=== PATIENT | male | born 1940 | race African-American/Black ===

== ENCOUNTER 2020-12-11 20:15 | Inpatient (IN) | payer OTHER ==
[2020-12-11 23:15] LABS: INR 1.06 (0.83-1.09); PROTHROMBIN TIME (PATIENT) 12.8 SEC (9.7-13.0)
[2020-12-11 23:18] LABS: ACTIVATED PTT 26.1 SECONDS (25.2-36.5)
[2020-12-11 23:28] LABS: CALCIUM 9.8 mg/dL (8.5-10.1)
[2020-12-11 23:29] LABS: ALBUMIN 3.7 g/dl (3.4-5.0); BLOOD UREA NITROGEN 14.8 mg/dL (7-18)
[2020-12-11 23:30] LABS: EOS % 4.9 % (0-4.5); HEMATOCRIT 30.5 % (35.4-49); HEMOGLOBIN 9.4 GM/dL (11.7-16.9); LYMPH % 21.1 % (8-40); MCH 24.7 pg (25.7-33.7); MEAN CELL VOLUME 79.6 fl (80-96); MEAN PLT VOLUME 9.2 fl (7.5-11.1); MONO % 7.9 % (3.8-10.2); NEUT % 65.1 % (42.8-82.8); PLATELET COUNT 354 K/MM3 (134-434); RBC 3.82 M/mm3 (4.00-5.60); RDW 16.5 % (11.9-15.9); WHITE BLOOD COUNT 11.8 K/mm3 (4.0-10.0)
[2020-12-11 23:32] LABS: CREATININE 1.4 mg/dL (0.55-1.3)
[2020-12-11 23:33] LABS: BILIRUBIN,TOTAL 0.2 mg/dL (0.2-1)
[2020-12-11 23:37] LABS: N-TERMINAL BNP 174.1 pg/ml (5-450)
[2020-12-11] MEDS ORDERED: SODIUM CHLORIDE 0.9% 500 ML INFUS.BAG IV ONE (23:43)
[2020-12-12 02:53] LABS: PH,URINE 7.5 (5.0-8.0); URINE APPEARANCE CLEAR; URINE BILIRUBIN NEGATIVE (NEGATIVE); URINE COLOR YELLOW; URINE GLUCOSE (UA) NEGATIVE (NEGATIVE); URINE KETONE NEGATIVE (NEGATIVE); URINE LEUK ESTERASE NEGATIVE (NEGATIVE); URINE NITRITE NEGATIVE (NEGATIVE); URINE PROTEIN NEGATIVE (NEGATIVE); URINE UROBILINOGEN 0.2 mg/dL (0.2-1.0)
[2020-12-12] MEDS ORDERED: ENOXAPARIN NA (PORCINE) 40 MG/0.4 ML DISP.SYRIN SQ ONE (07:51)
[2020-12-12] MEDS ORDERED: amLODIPine BESYLATE 5 MG TABLET (FP) ONE (07:51)
[2020-12-12 07:53] LABS: HEMATOCRIT 27.4 % (35.4-49); HEMOGLOBIN 8.8 GM/dL (11.7-16.9); MCH 25.4 pg (25.7-33.7); MCHC 32.1 g/dl (32.0-35.9); MEAN CELL VOLUME 79.1 fl (80-96); MEAN PLT VOLUME 9.1 fl (7.5-11.1); PLATELET COUNT 304 K/MM3 (134-434); RBC 3.47 M/mm3 (4.00-5.60); RDW 16.1 % (11.9-15.9); WHITE BLOOD COUNT 10.7 K/mm3 (4.0-10.0)
[2020-12-12 08:06] LABS: BLOOD UREA NITROGEN 11.1 mg/dL (7-18); CALCIUM 8.8 mg/dL (8.5-10.1)
[2020-12-12 08:09] LABS: CREATININE 1.1 mg/dL (0.55-1.3); PHOSPHOROUS 3.1 mg/dL (2.5-4.9)
[2020-12-12 08:11] LABS: BILIRUBIN,TOTAL 0.5 mg/dL (0.2-1); TOT PROT 6.7 g/dl (6.4-8.2)
[2020-12-12 08:18] LABS: IRON SERUM 21 ug/dL (50-175); TOTAL IRON BINDING CAPACITY 322 ug/dL (250-450)
[2020-12-12] MEDS: amLODIPine BESYLATE 5 MG TABLET (FP) PO SCH (11:19)
[2020-12-12] MEDS: ENOXAPARIN NA (PORCINE) 40 MG/0.4 ML DISP.SYRIN SQ SCH (11:19)
[2020-12-12 23:54] VITALS: BMI 23.7
[2020-12-13] MEDS: ENOXAPARIN NA (PORCINE) 40 MG/0.4 ML DISP.SYRIN SQ SCH (09:47)
[2020-12-13] MEDS: amLODIPine BESYLATE 5 MG TABLET (FP) PO SCH (09:48)
[2020-12-13] MEDS ORDERED: ZINC OXIDE/PANTHENOL/VITAMIN E 56 GM TUBE TP PRN (18:54)
[2020-12-13] MEDS ORDERED: PT OWN MED DRAWER 7, Y5N ONE ×2 (21:06→21:55)
[2020-12-13] MEDS: FAMOTIDINE 20 MG TABLET PO SCH (21:09)
[2020-12-13] MEDS: FOLIC ACID 1 MG TABLET (FP) PO SCH (21:09)
[2020-12-13] MEDS: GLYCOPYRROLATE 1 MG TABLET PO SCH (21:52)
[2020-12-14 08:03] LABS: BASO % 0.6 % (0-2.0); EOS % 2.8 % (0-4.5); HEMATOCRIT 27.4 % (35.4-49); HEMOGLOBIN 8.6 GM/dL (11.7-16.9); LYMPH % 10.3 % (8-40); MCH 24.9 pg (25.7-33.7); MCHC 31.2 g/dl (32.0-35.9); MEAN CELL VOLUME 79.8 fl (80-96); MEAN PLT VOLUME 9.6 fl (7.5-11.1); MONO % 5.9 % (3.8-10.2); NEUT % 80.4 % (42.8-82.8); PLATELET COUNT 311 K/MM3 (134-434); RBC 3.44 M/mm3 (4.00-5.60); RDW 16.4 % (11.9-15.9); WHITE BLOOD COUNT 17.1 K/mm3 (4.0-10.0)
[2020-12-14 08:22] LABS: BLOOD UREA NITROGEN 21.7 mg/dL (7-18)
[2020-12-14 08:26] LABS: CREATININE 1.1 mg/dL (0.55-1.3)
[2020-12-14 08:30] LABS: CALCIUM 10.3 mg/dL (8.5-10.1)
[2020-12-14] MEDS ORDERED: PT OWN MED DRAWER 7, Y5N ONE ×2 (09:06→21:53)
[2020-12-14] MEDS: FAMOTIDINE 20 MG TABLET PO SCH (09:44)
[2020-12-14] MEDS: amLODIPine BESYLATE 5 MG TABLET (FP) PO SCH (09:44)
[2020-12-14] MEDS: GLYCOPYRROLATE 1 MG TABLET PO SCH ×2 (09:44→23:00)
[2020-12-14] MEDS: ENOXAPARIN NA (PORCINE) 40 MG/0.4 ML DISP.SYRIN SQ SCH (09:45)
[2020-12-14] MEDS: FOLIC ACID 1 MG TABLET (FP) PO SCH (09:45)
[2020-12-14] MEDS ORDERED: dilTIAZem HCL 60 MG TABLET PO ONE (11:09)
[2020-12-14] MEDS ORDERED: ACETAMINOPHEN 500 MG TABLET (FP) PO PRN (22:21)
[2020-12-14] MEDS: DOCUSATE SODIUM 100 MG CAPSULE (FP) PO SCH (23:00)
[2020-12-15 07:23] LABS: HEMATOCRIT 27.2 % (35.4-49); HEMOGLOBIN 8.8 GM/dL (11.7-16.9); LYMPH % 24.1 % (8-40); MCH 25.5 pg (25.7-33.7); MCHC 32.3 g/dl (32.0-35.9); MEAN PLT VOLUME 9.1 fl (7.5-11.1); MONO % 8.7 % (3.8-10.2); NEUT % 61.2 % (42.8-82.8); PLATELET COUNT 311 K/MM3 (134-434); RBC 3.44 M/mm3 (4.00-5.60); RDW 16.3 % (11.9-15.9)
[2020-12-15 07:33] LABS: BLOOD UREA NITROGEN 16.7 mg/dL (7-18); CALCIUM 9.9 mg/dL (8.5-10.1)
[2020-12-15 07:36] LABS: CREATININE 1.2 mg/dL (0.55-1.3)
[2020-12-15] MEDS ORDERED: PT OWN MED DRAWER 7, Y5N ONE ×2 (09:33→21:11)
[2020-12-15] MEDS: FAMOTIDINE 20 MG TABLET PO SCH (10:10)
[2020-12-15] MEDS: GLYCOPYRROLATE 1 MG TABLET PO SCH ×2 (10:10→21:28)
[2020-12-15] MEDS: FOLIC ACID 1 MG TABLET (FP) PO SCH (10:10)
[2020-12-15] MEDS: DOCUSATE SODIUM 100 MG CAPSULE (FP) PO SCH (21:28)
[2020-12-16] MEDS ORDERED: PT OWN MED DRAWER 7, Y5N ONE ×2 (09:03→21:10)
[2020-12-16] MEDS: FAMOTIDINE 20 MG TABLET PO SCH (09:37)
[2020-12-16] MEDS: GLYCOPYRROLATE 1 MG TABLET PO SCH ×2 (09:39→21:12)
[2020-12-16] MEDS: FOLIC ACID 1 MG TABLET (FP) PO SCH (09:39)
[2020-12-16] MEDS ORDERED: AMIODARONE HCL 200 MG TABLET PO ONE (11:45)
[2020-12-16 13:23] LABS: BASO % 0.8 % (0-2.0); EOS % 3.6 % (0-4.5); HEMATOCRIT 28.6 % (35.4-49); LYMPH % 15.7 % (8-40); MCH 24.9 pg (25.7-33.7); MCHC 31.6 g/dl (32.0-35.9); MEAN CELL VOLUME 78.7 fl (80-96); MEAN PLT VOLUME 8.8 fl (7.5-11.1); MONO % 7.9 % (3.8-10.2); PLATELET COUNT 335 K/MM3 (134-434); RBC 3.63 M/mm3 (4.00-5.60); RDW 16.4 % (11.9-15.9); WHITE BLOOD COUNT 12.2 K/mm3 (4.0-10.0)
[2020-12-16 13:45] LABS: BLOOD UREA NITROGEN 20.1 mg/dL (7-18); CALCIUM 10.2 mg/dL (8.5-10.1)
[2020-12-16 13:50] LABS: CREATININE 1.3 mg/dL (0.55-1.3)
[2020-12-16] MEDS: AMIODARONE HCL 200 MG TABLET PO SCH ×2 (21:12→22:36)
[2020-12-16] MEDS: DOCUSATE SODIUM 100 MG CAPSULE (FP) PO SCH (21:12)
[2020-12-17] MEDS: AMIODARONE HCL 200 MG TABLET PO SCH ×3 (06:09→22:59)
[2020-12-17 08:24] LABS: EOS % 4.7 % (0-4.5); HEMATOCRIT 26.6 % (35.4-49); HEMOGLOBIN 8.5 GM/dL (11.7-16.9); LYMPH % 22.8 % (8-40); MCHC 31.9 g/dl (32.0-35.9); MEAN CELL VOLUME 78.5 fl (80-96); MEAN PLT VOLUME 9.2 fl (7.5-11.1); MONO % 7.2 % (3.8-10.2); NEUT % 64.3 % (42.8-82.8); PLATELET COUNT 328 K/MM3 (134-434); RBC 3.39 M/mm3 (4.00-5.60); RDW 16.2 % (11.9-15.9); WHITE BLOOD COUNT 11.3 K/mm3 (4.0-10.0)
[2020-12-17 08:38] LABS: CALCIUM 9.6 mg/dL (8.5-10.1)
[2020-12-17 08:40] LABS: BLOOD UREA NITROGEN 18.6 mg/dL (7-18)
[2020-12-17 08:42] LABS: CREATININE 1.4 mg/dL (0.55-1.3)
[2020-12-17] MEDS ORDERED: AMIODARONE HCL 200 MG TABLET PO SCH (10:00)
[2020-12-17] MEDS: GLYCOPYRROLATE 1 MG TABLET PO SCH ×2 (10:48→23:04)
[2020-12-17] MEDS: POLYETHYLENE GLYCOL 3350 119 GM BTL PO SCH (10:48)
[2020-12-17] MEDS: FAMOTIDINE 20 MG TABLET PO SCH (10:48)
[2020-12-17] MEDS: FOLIC ACID 1 MG TABLET (FP) PO SCH (10:48)
[2020-12-17] MEDS: PANTOPRAZOLE 40 MG TABLET PO SCH ×2 (16:39→22:58)
[2020-12-17] MEDS: MAG HYDROX/AL HYDROX/SIMETH 30 ML UNIT-DOSE CUP PO SCH ×2 (16:39→22:58)
[2020-12-17] MEDS: DOCUSATE SODIUM 100 MG CAPSULE (FP) PO SCH (22:58)
[2020-12-17] MEDS ORDERED: PT OWN MED DRAWER 7, Y5N ONE (23:01)
[2020-12-18] MEDS: AMIODARONE HCL 200 MG TABLET PO SCH ×3 (06:28→22:26)
[2020-12-18] MEDS: MAG HYDROX/AL HYDROX/SIMETH 30 ML UNIT-DOSE CUP PO SCH ×3 (06:28→22:27)
[2020-12-18] MEDS ORDERED: PT OWN MED DRAWER 7, Y5N ONE ×3 (08:51→22:23)
[2020-12-18] MEDS: ASCORBIC ACID 500 MG TABLET (FP) PO SCH (09:03)
[2020-12-18] MEDS: GLYCOPYRROLATE 1 MG TABLET PO SCH ×2 (09:03→22:27)
[2020-12-18] MEDS: FERROUS GLUCONATE 324 MG TAB (FP) PO SCH (09:03)
[2020-12-18] MEDS: FOLIC ACID 1 MG TABLET (FP) PO SCH (09:03)
[2020-12-18] MEDS: PANTOPRAZOLE 40 MG TABLET PO SCH ×2 (09:04→22:27)
[2020-12-18] MEDS: POLYETHYLENE GLYCOL 3350 119 GM BTL PO SCH (10:49)
[2020-12-18] MEDS: DOCUSATE SODIUM 100 MG CAPSULE (FP) PO SCH (22:26)
[2020-12-19] MEDS: MAG HYDROX/AL HYDROX/SIMETH 30 ML UNIT-DOSE CUP PO SCH (05:37)
[2020-12-19] MEDS ORDERED: PT OWN MED DRAWER 7, Y5N ONE (08:47)
[2020-12-19 08:53] VITALS: BP 126/63; PULSE 60; TEMP 97.8
[2020-12-19] MEDS: AMIODARONE HCL 200 MG TABLET PO SCH (09:09)
[2020-12-19] MEDS: FERROUS GLUCONATE 324 MG TAB (FP) PO SCH (09:09)
[2020-12-19] MEDS: GLYCOPYRROLATE 1 MG TABLET PO SCH (09:09)
[2020-12-19] MEDS: FOLIC ACID 1 MG TABLET (FP) PO SCH (09:10)
[2020-12-19] MEDS: PANTOPRAZOLE 40 MG TABLET PO SCH (09:10)
[2020-12-19] MEDS: POLYETHYLENE GLYCOL 3350 119 GM BTL PO SCH (09:10)
[2020-12-19] MEDS: ASCORBIC ACID 500 MG TABLET (FP) PO SCH (09:10)
== END 2020-12-19 11:00 | disposition home or self-care (01) | DRG 309 ==
LOC: JER 20:15 → JERBED 12-12 01:34 → J4S 12-12 20:40
PROVIDERS: ADMIT Hospitalist; ATTEND Internal Medicine
DX: I48.0 Paroxysmal atrial fibrillation (principal); G11.4 Hereditary spastic paraplegia; I24.8 Other forms of acute ischemic heart disease; N17.9 Acute kidney failure, unspecified; R42 Dizziness and giddiness; I47.2 Ventricular tachycardia; I47.1 Supraventricular tachycardia; I10 Essential (primary) hypertension; E78.5 Hyperlipidemia, unspecified; R73.9 Hyperglycemia, unspecified; D64.9 Anemia, unspecified; D72.829 Elevated white blood cell count, unspecified; R47.1 Dysarthria and anarthria
CPT/HCPCS: 36415; 70450-TC; 71045-TC-FY; 80048; 80053; 81003; 82272; 82550; 82553; 82570; 83036; 83540; 83550; 83735; 83880; 84100; 84300; 84443; 84484; 85025; 85027; 85610; 85651; 85730; 87040; 93005; 93010; 93225; 93226; 93306-TC; 93880-TC; 97161-GP; 99285-25; C9803; U0003; U0005

== ENCOUNTER 2023-06-11 10:26 | Inpatient (IN) | payer OTHER ==
[2023-06-11] MEDS ORDERED: SODIUM CHLORIDE 1,000 ML IV SCH (10:45)
[2023-06-11 11:24] LABS: INR 1.15 (0.83-1.09); PROTHROMBIN TIME (PATIENT) 13.3 SEC (9.7-13.0)
[2023-06-11 11:26] LABS: ACTIVATED PTT 25.6 SECONDS (25.2-36.5)
[2023-06-11 11:49] LABS: LIPASE 180 U/L (73-393)
[2023-06-11 11:49] LABS: CHLORIDE 105 mmol/L (98-107); POTASSIUM 4.1 mmol/L (3.5-5.1); SODIUM 138 mmol/L (136-145)
[2023-06-11 11:53] LABS: ALBUMIN 3.4 g/dl (3.4-5.0); ANION GAP 7 MMOL/L (8-16); BLOOD UREA NITROGEN 37.6 mg/dL (7-18); CALCIUM 9.2 mg/dL (8.5-10.1); CO2 26 mmol/L (21-32); GLUCOSE,RANDOM 182 mg/dL (74-106)
[2023-06-11 11:54] LABS: HEMATOCRIT 29.9 % (35.4-49); HEMOGLOBIN 8.8 GM/dL (11.7-16.9); MCH 21.8 pg (25.7-33.7); MCHC 29.5 g/dl (32.0-35.9); MEAN CELL VOLUME 74.1 fl (80-96); MEAN PLT VOLUME 7.7 fl (7.5-11.1); PLATELET COUNT 422 10^3/uL (134-434); RBC 4.03 M/mm3 (4.00-5.60); RDW 19.5 % (11.9-15.9); WHITE BLOOD COUNT 22.4 K/mm3 (4.0-10.0)
[2023-06-11 11:56] LABS: SGPT/ALT 17 U/L (13-61)
[2023-06-11 11:57] LABS: CHOLESTEROL 149 mg/dL (50-200); CREATININE 1.4 mg/dL (0.55-1.3); SGOT/AST 24 U/L (15-37)
[2023-06-11 11:58] LABS: ALK PHOS 70 U/L (45-117); BILIRUBIN,TOTAL 0.2 mg/dL (0.2-1); HDL CHOLESTEROL 51 mg/dL (40-60); LDL CHOLESTEROL (ONLY SJRH) 91 mg/dL (5-100); TOT PROT 7.5 g/dl (6.4-8.2)
[2023-06-11 12:04] LABS: LACTIC ACID 2.8 mmol/L (0.4-2.0)
[2023-06-11 12:24] LABS: VENOUS BASE EXCESS -2.2 mmol/L (-2-2); VENOUS O2 SATURATION 18.9 % (70-80); VENOUS PCO2 54.6 mmHg (38-52); VENOUS PH 7.278 (7.310-7.410)
[2023-06-11 12:26] LABS: ANISOCYTOSIS 2+; MACROCYTOSIS 0
[2023-06-11] MEDS ORDERED: CEFTRIAXONE 1 GM in DEXTROSE 5%-WATER - 100 ML IVPB ONE (12:41)
[2023-06-11] MEDS ORDERED: CEFTRIAXONE 1 GM/50 ML BAG ONE (12:51)
[2023-06-11] MEDS ORDERED: ONDANSETRON 4 MG/2 ML VIAL IVPUSH PRN (13:28)
[2023-06-11] MEDS: DEXTROSE 5%-0.45% SALINE 1,000 ML IV SCH (14:12)
[2023-06-11] MEDS ORDERED: VANCOMYCIN 1 GRAM (PRE-DOCKED) 1,000 MG/250 ML BAG IVPB ONE ×2 (14:15→14:25)
[2023-06-11 14:34] LABS: URINE APPEARANCE CLEAR; URINE BILIRUBIN NEGATIVE (NEGATIVE); URINE COLOR YELLOW; URINE GLUCOSE (UA) NEGATIVE (NEGATIVE); URINE KETONE NEGATIVE (NEGATIVE); URINE LEUK ESTERASE NEGATIVE (NEGATIVE); URINE NITRITE NEGATIVE (NEGATIVE); URINE PROTEIN NEGATIVE (NEGATIVE); URINE UROBILINOGEN 0.2 mg/dL (0.2-1.0)
[2023-06-11 16:05] LABS: BASO % 0.4 % (0-2.0); EOS % 0.2 % (0-4.5); HEMATOCRIT 25.4 % (35.4-49); HEMOGLOBIN 7.6 GM/dL (11.7-16.9); LYMPH % 11.6 % (8-40); MCH 22.1 pg (25.7-33.7); MCHC 30.1 g/dl (32.0-35.9); MEAN CELL VOLUME 73.5 fl (80-96); MEAN PLT VOLUME 7.2 fl (7.5-11.1); MONO % 6.2 % (3.8-10.2); NEUT % 81.6 % (42.8-82.8); PLATELET COUNT 388 10^3/uL (134-434); RBC 3.45 M/mm3 (4.00-5.60); RDW 19.4 % (11.9-15.9); WHITE BLOOD COUNT 18.7 K/mm3 (4.0-10.0)
[2023-06-12 07:26] LABS: EPI CELLS 14 /uL (0-25.1); HYALINE CASTS 0 /uL (0-3.1); URINE APPEARANCE CLEAR; URINE BACTERIA 4 /uL (0-1359); URINE BILIRUBIN NEGATIVE (NEGATIVE); URINE COLOR YELLOW; URINE GLUCOSE (UA) NEGATIVE (NEGATIVE); URINE KETONE NEGATIVE (NEGATIVE); URINE LEUK ESTERASE TRACE (NEGATIVE); URINE NITRITE NEGATIVE (NEGATIVE); URINE PROTEIN NEGATIVE (NEGATIVE); URINE RBC 11 /uL (0-23.9); URINE UROBILINOGEN 0.2 mg/dL (0.2-1.0); URINE WBC 62 /uL (0-25.8)
[2023-06-12] MEDS ORDERED: PANTOPRAZOLE SODIUM 40 MG VIAL IVPUSH SCH (10:00)
[2023-06-12] MEDS ORDERED: amLODIPine BESYLATE 10 MG TABLET (FP) PO SCH (10:00)
[2023-06-12] MEDS: PIPERACILLIN/TAZOB 2.25 GM 2.25 GM in DEXTROSE 5%-WATER - 50 ML IVPB SCH ×2 (12:40→17:05)
[2023-06-12] MEDS: DEXTROSE 5%-0.45% SALINE 1,000 ML IV SCH (12:40)
[2023-06-12 12:52] LABS: HEMATOCRIT 24.9 % (35.4-49); HEMOGLOBIN 7.1 GM/dL (11.7-16.9); MCH 21.7 pg (25.7-33.7); MCHC 28.3 g/dl (32.0-35.9); MEAN CELL VOLUME 76.8 fl (80-96); MEAN PLT VOLUME 7.8 fl (7.5-11.1); PLATELET COUNT 312 10^3/uL (134-434); RBC 3.25 M/mm3 (4.00-5.60); RDW 19.6 % (11.9-15.9)
[2023-06-13] MEDS: PIPERACILLIN/TAZOB 3.375 GM 3.375 GM in DEXTROSE 5%-WATER - 50 ML IVPB SCH ×3 (03:03→18:24)
[2023-06-13] MEDS: DEXTROSE 5%-0.45% SALINE 1,000 ML IV SCH ×3 (06:11→22:11)
[2023-06-13] MEDS: PIPERACILLIN/TAZOB 2.25 GM 2.25 GM in DEXTROSE 5%-WATER - 50 ML IVPB SCH (07:22)
[2023-06-13 07:37] LABS: HEMATOCRIT 24.3 % (35.4-49); HEMOGLOBIN 7.7 GM/dL (11.7-16.9); MCH 24.3 pg (25.7-33.7); MCHC 31.8 g/dl (32.0-35.9); MEAN CELL VOLUME 76.6 fl (80-96); MEAN PLT VOLUME 7.9 fl (7.5-11.1); PLATELET COUNT 282 10^3/uL (134-434); RBC 3.17 M/mm3 (4.00-5.60); RDW 18.9 % (11.9-15.9); WHITE BLOOD COUNT 11.4 K/mm3 (4.0-10.0)
[2023-06-13 07:58] LABS: POTASSIUM 3.6 mmol/L (3.5-5.1)
[2023-06-13 08:01] LABS: CALCIUM 7.9 mg/dL (8.5-10.1)
[2023-06-13 08:17] LABS: BLOOD UREA NITROGEN 11.9 mg/dL (7-18)
[2023-06-13] MEDS ORDERED: IRON SUCROSE INJECTION 200 MG in SODIUM CHLORIDE 90 ML IVPB ONE (10:00)
[2023-06-13] MEDS: metoPROLOL SUCCINATE 25 MG TAB.SR.24H (FP) PO SCH (10:23)
[2023-06-13] MEDS: POLYETHYLENE GLYCOL (HEALTHYLAX) 3350 17 GM PACKET PO SCH (10:23)
[2023-06-13] MEDS: PANTOPRAZOLE 40 MG TABLET PO SCH (10:23)
[2023-06-13] MEDS: ASPIRIN 81 MG CHEWABLE TABLETS PO SCH (13:28)
[2023-06-14] MEDS: PIPERACILLIN/TAZOB 3.375 GM 3.375 GM in DEXTROSE 5%-WATER - 50 ML IVPB SCH ×3 (01:17→18:01)
[2023-06-14] MEDS: POLYETHYLENE GLYCOL (HEALTHYLAX) 3350 17 GM PACKET PO SCH (09:52)
[2023-06-14] MEDS: metoPROLOL SUCCINATE 25 MG TAB.SR.24H (FP) PO SCH (09:53)
[2023-06-14] MEDS: PANTOPRAZOLE 40 MG TABLET PO SCH (09:53)
[2023-06-14] MEDS: ASPIRIN 81 MG CHEWABLE TABLETS PO SCH (09:53)
[2023-06-14] MEDS ORDERED: IRON SUCROSE INJECTION 200 MG in SODIUM CHLORIDE 90 ML IVPB ONE (10:00)
[2023-06-15] MEDS: PIPERACILLIN/TAZOB 3.375 GM 3.375 GM in DEXTROSE 5%-WATER - 50 ML IVPB SCH ×3 (02:41→17:48)
[2023-06-15] MEDS: DEXTROSE 5%-0.45% SALINE 1,000 ML IV SCH ×2 (05:08→22:57)
[2023-06-15 07:49] LABS: BASO % 1.5 % (0-2.0); EOS % 2.2 % (0-4.5); HEMATOCRIT 26.8 % (35.4-49); HEMOGLOBIN 8.2 GM/dL (11.7-16.9); LYMPH % 16.7 % (8-40); MCH 24.4 pg (25.7-33.7); MCHC 30.7 g/dl (32.0-35.9); MEAN CELL VOLUME 79.4 fl (80-96); MONO % 7.9 % (3.8-10.2); NEUT % 71.7 % (42.8-82.8); PLATELET COUNT 323 10^3/uL (134-434); RBC 3.38 M/mm3 (4.00-5.60); RDW 19.9 % (11.9-15.9); WHITE BLOOD COUNT 10.2 K/mm3 (4.0-10.0)
[2023-06-15 08:03] LABS: POTASSIUM 4.2 mmol/L (3.5-5.1)
[2023-06-15 08:08] LABS: BLOOD UREA NITROGEN 4.9 mg/dL (7-18)
[2023-06-15 08:12] LABS: BILIRUBIN,TOTAL 0.3 mg/dL (0.2-1); TOT PROT 6.2 g/dl (6.4-8.2)
[2023-06-15 08:20] LABS: ALBUMIN 2.7 g/dl (3.4-5.0)
[2023-06-15] MEDS: metoPROLOL SUCCINATE 25 MG TAB.SR.24H (FP) PO SCH (09:42)
[2023-06-15] MEDS: ASPIRIN 81 MG CHEWABLE TABLETS PO SCH (09:42)
[2023-06-15] MEDS: POLYETHYLENE GLYCOL (HEALTHYLAX) 3350 17 GM PACKET PO SCH (09:42)
[2023-06-15] MEDS: PANTOPRAZOLE 40 MG TABLET PO SCH (09:42)
[2023-06-15] MEDS ORDERED: IRON SUCROSE INJECTION 200 MG in SODIUM CHLORIDE 90 ML IVPB ONE (10:00)
[2023-06-16] MEDS: PIPERACILLIN/TAZOB 3.375 GM 3.375 GM in DEXTROSE 5%-WATER - 50 ML IVPB SCH ×3 (01:01→17:34)
[2023-06-16] MEDS: ASPIRIN 81 MG CHEWABLE TABLETS PO SCH (09:25)
[2023-06-16] MEDS: PANTOPRAZOLE 40 MG TABLET PO SCH (09:25)
[2023-06-16] MEDS: metoPROLOL SUCCINATE 25 MG TAB.SR.24H (FP) PO SCH (09:25)
[2023-06-16] MEDS: POLYETHYLENE GLYCOL (HEALTHYLAX) 3350 17 GM PACKET PO SCH (09:25)
[2023-06-16] MEDS: DEXTROSE 5%-0.45% SALINE 1,000 ML IV SCH ×2 (09:30→17:34)
[2023-06-16 13:07] VITALS: BMI 20.5
[2023-06-17] MEDS: PIPERACILLIN/TAZOB 3.375 GM 3.375 GM in DEXTROSE 5%-WATER - 50 ML IVPB SCH ×3 (05:30→18:02)
[2023-06-17] MEDS: metoPROLOL SUCCINATE 25 MG TAB.SR.24H (FP) PO SCH (09:49)
[2023-06-17] MEDS: POLYETHYLENE GLYCOL (HEALTHYLAX) 3350 17 GM PACKET PO SCH (09:49)
[2023-06-17] MEDS: PANTOPRAZOLE 40 MG TABLET PO SCH (09:49)
[2023-06-17] MEDS: ASPIRIN 81 MG CHEWABLE TABLETS PO SCH (09:49)
[2023-06-17 13:21] VITALS: RESP 18
[2023-06-17] MEDS: DEXTROSE 5%-0.45% SALINE 1,000 ML IV SCH (18:03)
[2023-06-17 20:20] VITALS: BP 160/80; PULSE 100; TEMP 98.8
[2023-06-18] MEDS: PIPERACILLIN/TAZOB 3.375 GM 3.375 GM in DEXTROSE 5%-WATER - 50 ML IVPB SCH (01:59)
== END 2023-06-18 04:06 | disposition home or self-care (01) | DRG 811 ==
LOC: JER 10:26 → JERBED 12:43 → J4W 18:51
PROVIDERS: ADMIT Internal Medicine; ATTEND Internal Medicine
PROC: 30233N1 Transfusion of Nonautologous Red Blood Cells into Peripheral Vein, Percutaneous Approach (ICD-10-PCS; principal; 2023-06-12)
DX: D50.9 Iron deficiency anemia, unspecified (principal); I49.01 Ventricular fibrillation; J69.0 Pneumonitis due to inhalation of food and vomit; G82.20 Paraplegia, unspecified; G11.4 Hereditary spastic paraplegia; E87.20 Acidosis, unspecified; I24.8 Other forms of acute ischemic heart disease; I47.29 Other ventricular tachycardia; R41.82 Altered mental status, unspecified; I48.91 Unspecified atrial fibrillation; K22.89 Other specified disease of esophagus; D72.829 Elevated white blood cell count, unspecified; E78.00 Pure hypercholesterolemia, unspecified; I48.0 Paroxysmal atrial fibrillation; I34.0 Nonrheumatic mitral (valve) insufficiency; R77.8 Other specified abnormalities of plasma proteins; I12.9 Hypertensive chronic kidney disease with stage 1 through stage 4 chronic kidney disease, or unspecified chronic kidney disease; N18.9 Chronic kidney disease, unspecified; R13.19 Other dysphagia; K44.9 Diaphragmatic hernia without obstruction or gangrene; R11.2 Nausea with vomiting, unspecified; R47.1 Dysarthria and anarthria
CPT/HCPCS: 0241U-QW; 36415; 36430; 70450-TC; 70496-TC; 70498-TC; 71045-TC-FY; 71250-TC; 80048; 80053; 80061; 80307; 81003; 82140; 82550; 82553; 82728; 82803; 82962; 83036; 83540; 83550; 83605; 83690; 84443; 84484; 85025; 85027; 85610; 85730; 86850; 86900; 86901; 86922; 87040; 87086; 93005; 93010; 93306-TC; 99291; 99292; J1756; P9058